=== PATIENT | female | born 1945 | race Caucasian/White ===

== ENCOUNTER → 2020-03-16 | Outpatient (CLI) | payer MEDICARE ==
[~2020-03-16] MED LIST: ALBU2.5V2 IH; ASPI-1197 PO; ASTHMANEX; BISO5TAB19 PO; CLON0.1T PO; CLOP75TA32 PO; HYDR-4060 PO; LIDO20SO MM; LORA1TAB3 PO; LOSA1TAB42 PO; PITA1TAB2 PO; RANO500T2 PO; SUCR1TAB2 PO; TIOT4MIS5 IH
== END | disposition home or self-care (01) ==
LOC: RAH 12:12
PROVIDERS: ATTEND Neurological Surgery
DX: I70.218 Atherosclerosis of native arteries of extremities with intermittent claudication, other extremity (principal); I73.9 Peripheral vascular disease, unspecified; I70.0 Atherosclerosis of aorta
CPT/HCPCS: 93925

== ENCOUNTER → 2020-03-30 | Outpatient (CLI) | payer MEDICARE | END | disposition home or self-care (01) | LOC: SHCH 12:26 | PROVIDERS: ATTEND Internal Medicine Cardiovascular Disease | DX: I65.23 Occlusion and stenosis of bilateral carotid arteries (principal); I51.7 Cardiomegaly; I87.2 Venous insufficiency (chronic) (peripheral); R00.2 Palpitations ==

== ENCOUNTER → 2020-04-07 | Outpatient (CLI) | payer MEDICARE | END | disposition home or self-care (01) | LOC: LAB 11:59 | PROVIDERS: ATTEND Internal Medicine Cardiovascular Disease | DX: I73.89 Other specified peripheral vascular diseases (principal) ==

== ENCOUNTER → 2020-04-09 | Outpatient (CLI) | payer MEDICARE ==
[~2020-04-09] MED LIST changes: +IOHEXOL-350 50ML VIAL IV ONE
== END ==
LOC: OIH 07:46
PROVIDERS: ATTEND Internal Medicine Cardiovascular Disease
DX: I70.0 Atherosclerosis of aorta (principal); J98.11 Atelectasis
CPT/HCPCS: 75635; Q9967

== ENCOUNTER → 2020-07-08 | Outpatient (CLI) | payer MEDICARE ==
[~2020-07-08] MED LIST changes: -IOHEXOL-350 50ML VIAL IV ONE; +REGADENOSON 0.4 MG/5 ML PF SYG IVP SCH
== END | disposition home or self-care (01) ==
LOC: SHCH 07:43
PROVIDERS: ATTEND Internal Medicine Cardiovascular Disease
DX: R06.00 Dyspnea, unspecified (principal); I51.7 Cardiomegaly
CPT/HCPCS: 78452; 93017; 96374; A9500 ×2; J2785

== ENCOUNTER → 2022-05-26 | Outpatient (CLI) | payer MEDICARE ==
[~2022-05-26] MED LIST changes: -ALBU2.5V2 IH; +APIX5TAB PO; -ASPI-1197 PO; -ASTHMANEX; -BISO5TAB19 PO; -LIDO20SO MM; -LOSA1TAB42 PO; +NITR0.4T50 SL; +OLME20TA22 PO; -PITA1TAB2 PO; -REGADENOSON 0.4 MG/5 ML PF SYG IVP SCH; -SUCR1TAB2 PO; +TIOT18CA3 IH; -TIOT4MIS5 IH
[2022-05-26 12:53] LABS: MAGNESIUM 1.8 mg/dL (1.80-2.40); T4 (THYROXINE) 8.7 ug/dL (4.7-13.3); THYROID STIMULATING HORMONE 0.94 uIU/mL (0.36-3.74)
== END | disposition home or self-care (01) ==
LOC: LAB 10:29
PROVIDERS: ATTEND Internal Medicine Cardiovascular Disease
DX: I65.23 Occlusion and stenosis of bilateral carotid arteries (principal); I25.10 Atherosclerotic heart disease of native coronary artery without angina pectoris; I10 Essential (primary) hypertension; E78.5 Hyperlipidemia, unspecified; R60.9 Edema, unspecified
CPT/HCPCS: 36415; 80061; 83735; 83880; 84436; 84443; 84479; 93880

== ENCOUNTER → 2022-09-13 | Outpatient (CLI) | payer MEDICARE ==
[2022-09-13 12:22] LABS: BASOPHILS % (AUTO) 0.9 % (0.0-5.0); EOSINOPHILS % (AUTO) 1.5 % (0.0-8.0); HEMATOCRIT 36.6 % (36-48); LYMPHOCYTES % (AUTO) 41.4 % (21.0-51.0); MEAN CORPUSCULAR HEMOGLOBIN 33.2 pg (27.0-33.0); MEAN CORPUSCULAR HGB CONC 34.4 g/dL (32.0-36.0); MEAN CORPUSCULAR VOLUME 96.3 fL (79-99); NEUTROPHILS % (AUTO) 46.8 % (40.0-77.0); PLATELET COUNT (AUTO) 293 K/uL (130-400); RED CELL DISTRIBUTION WIDTH 12.6 % (11.0-15.5); WHITE BLOOD COUNT (AUTO) 5.5 K/uL (4.8-10.8)
[2022-09-13 12:25] LABS: APPEARANCE,URINE CLEAR (CLEAR); BILIRUBIN,URINE NEGATIVE (NEGATIVE); COLOR,URINE LIGHT-YELLOW (YELLOW); GLUCOSE, URINE (UA) NEGATIVE (NEGATIVE); KETONES,URINE NEGATIVE (NEGATIVE); LEUKOCYTE ESTERASE ,URINE NEGATIVE Leu/uL (NEGATIVE); NITRATE,URINE NEGATIVE (NEGATIVE); OCCULT BLOOD,URINE NEGATIVE (NEGATIVE); PH,URINE 6.5 (5.0-8.0); PROTEIN,URINE NEGATIVE (NEGATIVE); UROBILINOGEN,URINE 0.2 mg/dL (0.2-1.0)
[2022-09-13 12:42] LABS: SQUAMOUS EPITHELIAL CELL,UR RARE /HPF (0-2)
[2022-09-13 12:56] LABS: B-TYPE NATRIURETIC PEPTIDE 16 pg/mL (0-100)
[2022-09-13 13:03] LABS: ALBUMIN 3.7 g/dL (3.5-5.0); CREATININE 0.9 mg/dL (0.5-1.5); MAGNESIUM 1.9 mg/dL (1.80-2.40); POTASSIUM 4.7 mmol/L (3.5-5.1); THYROID STIMULATING HORMONE 1.55 uIU/mL (0.36-3.74); TOTAL PROTEIN, SERUM 7.3 g/dL (6.0-8.3)
[2022-09-13 13:14] LABS: HEMOGLOBIN A1C 7.4 % (4.0-6.0)
== END | disposition home or self-care (01) ==
LOC: LAB 09:31
PROVIDERS: ATTEND Physician Assistant
DX: I10 Essential (primary) hypertension (principal); E78.5 Hyperlipidemia, unspecified; I25.10 Atherosclerotic heart disease of native coronary artery without angina pectoris; Z79.899 Other long term (current) drug therapy; Z95.5 Presence of coronary angioplasty implant and graft
CPT/HCPCS: 36415; 80053; 81001; 83036; 83735; 83880; 84436; 84443; 84479; 85025

== ENCOUNTER → 2022-09-27 | Outpatient (CLI) | payer MEDICARE ==
[~2022-09-27] MED LIST changes: +ALBUTEROL 0.083% 2.5 MG/3 ML INH IH ONE
== END | disposition home or self-care (01) ==
LOC: RESP 12:02
PROVIDERS: ATTEND Internal Medicine Cardiovascular Disease
DX: R06.02 Shortness of breath (principal)
CPT/HCPCS: 94060; 94727; 94729

== ENCOUNTER → 2023-09-28 | Outpatient (CLI) | payer MEDICARE ==
[~2023-09-28] MED LIST changes: -ALBUTEROL 0.083% 2.5 MG/3 ML INH IH ONE; -OLME20TA22 PO; +OLME20TA68 PO
[2023-09-28 11:55] LABS: T4 (THYROXINE) 7.6 ug/dL (4.7-13.3); THYROID STIMULATING HORMONE 1.73 uIU/mL (0.36-3.74)
== END | disposition home or self-care (01) ==
LOC: LAB 09-27 10:26
PROVIDERS: ATTEND Internal Medicine Cardiovascular Disease
DX: I10 Essential (primary) hypertension (principal); R07.9 Chest pain, unspecified; E78.5 Hyperlipidemia, unspecified
CPT/HCPCS: 36415; 80061; 84436; 84443; 84479

== ENCOUNTER 2023-09-30 19:05 | Inpatient (IN) | payer MEDICARE ==
[~2023-09-30] VITALS: Ht 162.6 cm; Wt 83.9 kg
[2023-09-30 19:36] LABS: BASOPHILS # (AUTO) 0.01 K/uL (0.00-0.20); BASOPHILS % (AUTO) 0.2 % (0.0-5.0); HEMATOCRIT 34.9 % (36-48); IMMATURE GRANULOCYTE ABSOLUTE 0.03 K/uL (0-1); LYMPHOCYTES # (AUTO) 0.8 K/uL (1.0-4.8); LYMPHOCYTES % (AUTO) 13.3 % (21.0-51.0); MEAN CORPUSCULAR HEMOGLOBIN 33.4 pg (27.0-33.0); MEAN CORPUSCULAR HGB CONC 34.1 g/dL (32.0-36.0); MONOCYTES # (AUTO) 0.5 K/uL (0.1-1.0); MONOCYTES % (AUTO) 8.5 % (3.0-13.0); NEUTROPHILS # (AUTO) 4.5 K/uL (1.8-7.7); NEUTROPHILS % (AUTO) 77.5 % (40.0-77.0); PLATELET COUNT (AUTO) 183 K/uL (130-400); RED BLOOD CELL COUNT(AUTO) 3.56 MIL/uL (4.00-5.50); RED CELL DISTRIBUTION WIDTH 13.2 % (11.0-15.5); WHITE BLOOD COUNT (AUTO) 5.9 K/uL (4.8-10.8)
[2023-09-30 19:39] LABS: SARS-CoV-2, RNA, NAAT NEGATIVE SARS CoV-2 (NEGATIVE)
[2023-09-30 19:48] LABS: INFLUENZA TYPE A Negative For Type A (NEGATIVE); INFLUENZA TYPE B Negative For Type B (NEGATIVE)
[2023-09-30 19:49] LABS: CREATININE 1.1 mg/dL (0.5-1.5); POTASSIUM 3.3 mmol/L (3.5-5.1)
[2023-09-30] MEDS ORDERED: VANCOMYCIN KIT 1 GM/250 ML IV.KIT IV ONE (20:00)
[2023-09-30] MEDS ORDERED: GUAIFENESIN 600 MG TABLET.ER PO ONE (20:30)
[2023-09-30] MEDS ORDERED: 0.9%NACL 1000ML 1,641 ML IV ONE ×2 (20:30→21:00)
[2023-09-30] MEDS ORDERED: ALBUTEROL 0.083% 2.5 MG/3 ML INH IH ONE ×3 (20:30)
[2023-09-30 20:31] VITALS: PULSE 66; RESP 20
[2023-09-30] MEDS ORDERED: CEFTRIAXONE 1G VIAL IVPB SCH (22:30)
[2023-09-30 22:41] LABS: APPEARANCE,URINE CLOUDY (CLEAR); BILIRUBIN,URINE NEGATIVE (NEGATIVE); COLOR,URINE YELLOW (YELLOW); GLUCOSE, URINE (UA) 30 mg/dL (NEGATIVE); KETONES,URINE 10 mg/dL (NEGATIVE); LEUKOCYTE ESTERASE ,URINE NEGATIVE Leu/uL (NEGATIVE); NITRATE,URINE NEGATIVE (NEGATIVE); OCCULT BLOOD,URINE NEGATIVE (NEGATIVE); PH,URINE 5.5 (5.0-8.0); PROTEIN,URINE 10 mg/dL (NEGATIVE); UROBILINOGEN,URINE 0.2 mg/dL (0.2-1.0)
[2023-09-30 22:47] LABS: ADD UA MICROSCOPIC YES
[2023-09-30] MEDS: ONDANSETRON ODT 4MG TAB SL SCH (22:49)
[2023-09-30] MEDS: 0.9%NACL 1000ML 1,000 ML IV SCH (22:49)
[2023-09-30] MEDS: ACETAMINOPHEN 325 MG TAB PO PRN (22:50)
[2023-09-30 22:56] LABS: BACTERIA,URINE MOD /HPF (None Seen); MUCUS,URINE RARE LPF (None Seen); RBC,URINE 0-1 /HPF (0-1); SQUAMOUS EPITHELIAL CELL,UR MANY /HPF (0-2)
[2023-09-30 23:15] VITALS: PULSE 71; RESP 20
[2023-09-30] MEDS: ALBUTEROL 0.083% 2.5 MG/3 ML INH IH SCH (23:15)
[2023-10-01] MEDS: LACTATED RINGERS 1000ML 1,000 ML IV SCH ×2 (03:10→17:31)
[2023-10-01] MEDS: ONDANSETRON ODT 4MG TAB SL SCH ×4 (03:20→14:30)
[2023-10-01] MEDS: ALBUTEROL 0.083% 2.5 MG/3 ML INH IH SCH ×3 (06:34→19:39)
[2023-10-01 06:35] VITALS: PULSE 73; RESP 18
[2023-10-01 07:07] LABS: BASOPHILS # (AUTO) 0.01 K/uL (0.00-0.20); BASOPHILS % (AUTO) 0.3 % (0.0-5.0); EOSINOPHILS # (AUTO) 0.01 K/uL (0.00-0.70); EOSINOPHILS % (AUTO) 0.3 % (0.0-8.0); HEMATOCRIT 29.9 % (36-48); IMMATURE GRANULOCYTE ABSOLUTE 0.01 K/uL (0-1); LYMPHOCYTES # (AUTO) 1.5 K/uL (1.0-4.8); LYMPHOCYTES % (AUTO) 39.3 % (21.0-51.0); MEAN CORPUSCULAR HEMOGLOBIN 32.9 pg (27.0-33.0); MEAN CORPUSCULAR HGB CONC 32.8 g/dL (32.0-36.0); MEAN CORPUSCULAR VOLUME 100.3 fL (79-99); MONOCYTES # (AUTO) 0.4 K/uL (0.1-1.0); NEUTROPHILS # (AUTO) 1.9 K/uL (1.8-7.7); NEUTROPHILS % (AUTO) 49.8 % (40.0-77.0); PLATELET COUNT (AUTO) 164 K/uL (130-400); RED BLOOD CELL COUNT(AUTO) 2.98 MIL/uL (4.00-5.50); RED CELL DISTRIBUTION WIDTH 13.6 % (11.0-15.5); WHITE BLOOD COUNT (AUTO) 3.9 K/uL (4.8-10.8)
[2023-10-01 08:25] LABS: POTASSIUM 3.3 mmol/L (3.5-5.1)
[2023-10-01] MEDS ORDERED: AZITHROMYCIN 250 MG TABLET PO ONE (09:00)
[2023-10-01 11:05] VITALS: PULSE 79; RESP 18
[2023-10-01] MEDS: POTASSIUM CHLORIDE 10% ELIXIR 20 MEQ/15 ML UDCUP PO PRN ×3 (11:14→15:57)
[2023-10-01] MEDS ORDERED: KETOROLAC 30MG VIAL (30MG/ML) IVP ONE (11:30)
[2023-10-01] MEDS ORDERED: POTASSIUM CHLORIDE 20MEQ/100ML 100 ML IV PRN (11:30)
[2023-10-01] MEDS ORDERED: COMPOUND IV MISC 1 EACH IVSOLN MISC PRN (13:00)
[2023-10-01] MEDS ORDERED: MEROPENEM 1 GM VIAL ONE (13:21)
[2023-10-01] MEDS: 0.9%NACL 1000ML 1,000 ML IV SCH (13:22)
[2023-10-01] MEDS: MEROPENEM 1 GM in 0.9%NACL 100ML 100 ML IV SCH (13:22)
[2023-10-01] MEDS ORDERED: TORS5TAB12 PO (13:44)
[2023-10-01] MEDS ORDERED: BISO5TAB19 PO (13:44)
[2023-10-01] MEDS ORDERED: HYDR-4060 PO (13:44)
[2023-10-01] MEDS ORDERED: OLME20TA68 PO (13:44)
[2023-10-01 14:57] LABS: ABG BASE EXCESS -6.5 mmol/L (-2.0-3.0); ABG HCO3 17.2 mmol/L (21.0-28.0); ABG OXYGEN SATURATION 95.9 % (95.0-99.0); ABG PCO2 29 mmHg (32-45); ABG PH 7.398 (7.35-7.450); CARBON MONOXIDE 0.3; DEVICE COMMENT RR RA; HHb 4.1; PO2, ARTERIAL BG 84.9 mmHg (83.0-108.0)
[2023-10-01] MEDS: BENZONATATE 100 MG CAPSULE PO PRN (17:31)
[2023-10-01 19:39] VITALS: PULSE 78; RESP 18; O2SAT 96
[2023-10-01] MEDS: GUAIFENESIN-DM 200/20 MG 10 ML PO PRN (20:45)
[2023-10-01] MEDS: ACETAMINOPHEN 325 MG TAB PO PRN (20:46)
[2023-10-02] VITALS (11 sets, daily range): BP systolic 148–189; BP diastolic 71–87; PULSE 89–115; RESP 17–22; O2SAT 93–97
[2023-10-02] MEDS: MEROPENEM 1 GM in 0.9%NACL 100ML 100 ML IV SCH ×2 (00:44→14:17)
[2023-10-02] MEDS: 0.9%NACL 1000ML 1,000 ML IV SCH ×2 (01:35→14:30)
[2023-10-02] MEDS: ALBUTEROL 0.083% 2.5 MG/3 ML INH IH SCH ×5 (01:38→23:14)
[2023-10-02] MEDS: BENZONATATE 100 MG CAPSULE PO PRN (01:45)
[2023-10-02] MEDS: ACETAMINOPHEN 325 MG TAB PO PRN ×2 (03:25→10:29)
[2023-10-02] MEDS ORDERED: KETOROLAC 15MG/ML VIAL (15MG/ML) IV ONE (04:30)
[2023-10-02] MEDS: AZITHROMYCIN 250 MG TABLET PO SCH (10:24)
[2023-10-02] MEDS: HYDROMORPHONE 1 MG INJ IVP PRN (13:06)
[2023-10-02] MEDS: HYDROCODONE/ACETAMINOPHEN 10/325 MG TAB PO PRN (17:17)
[2023-10-02] MEDS ORDERED: CLONIDINE HCL 0.1 MG TABLET PO PRN ×3 (17:30→19:30)
[2023-10-02] MEDS: (Olmesartan Medoxomil 20 MG) PO SCH (20:56)
[2023-10-02] MEDS: METOPROLOL TARTRATE 50 MG TAB PO SCH (20:57)
[2023-10-02] MEDS: FAMOTIDINE 20MG TAB PO SCH (20:57)
[2023-10-02] MEDS: LORAZEPAM 1 MG TABLET PO PRN (20:57)
[2023-10-02] MEDS: APIXABAN 5 MG TABLET PO SCH (20:57)
[2023-10-02] MEDS: RANOLAZINE 500 MG TAB.SR.12H PO SCH (20:57)
[2023-10-02] MEDS ORDERED: NON-FORMULARY MEDICATION 1 EACH (Olmesartan Medoxomil 20 MG) PO SCH (21:00)
[2023-10-03] VITALS (13 sets, daily range): BP systolic 143–162; BP diastolic 63–89; PULSE 74–101; RESP 16–22; O2SAT 86–95
[2023-10-03] MEDS: ACETAMINOPHEN 325 MG TAB PO PRN (00:08)
[2023-10-03] MEDS: MEROPENEM 1 GM in 0.9%NACL 100ML 100 ML IV SCH ×2 (01:54→14:58)
[2023-10-03] MEDS: 0.9%NACL 1000ML 1,000 ML IV SCH ×2 (02:49→17:10)
[2023-10-03] MEDS: HYDROMORPHONE 1 MG INJ IVP PRN (05:03)
[2023-10-03] MEDS: ALBUTEROL 0.083% 2.5 MG/3 ML INH IH SCH ×4 (06:54→23:37)
[2023-10-03] MEDS ORDERED: BISOPROLOL FUMARATE 5 MG PO SCH (09:00)
[2023-10-03] MEDS ORDERED: LOSARTAN 100 MG TABLET PO SCH (09:00)
[2023-10-03] MEDS: TORSEMIDE 5 MG PO SCH (09:00)
[2023-10-03] MEDS ORDERED: ATENOLOL 50 MG TABLET PO SCH (09:00)
[2023-10-03] MEDS: AZITHROMYCIN 250 MG TABLET PO SCH (10:02)
[2023-10-03] MEDS: METOPROLOL TARTRATE 50 MG TAB PO SCH ×2 (10:02→21:03)
[2023-10-03] MEDS: RANOLAZINE 500 MG TAB.SR.12H PO SCH ×2 (10:02→21:03)
[2023-10-03] MEDS: CLOPIDOGREL 75MG TAB PO SCH (10:02)
[2023-10-03] MEDS: APIXABAN 5 MG TABLET PO SCH ×2 (10:02→21:05)
[2023-10-03 10:10] LABS: HEMATOCRIT 34.7 % (36-48); MEAN CORPUSCULAR HEMOGLOBIN 32.9 pg (27.0-33.0); RED BLOOD CELL COUNT(AUTO) 3.37 MIL/uL (4.00-5.50); RED CELL DISTRIBUTION WIDTH 13.8 % (11.0-15.5); WHITE BLOOD COUNT (AUTO) 4.9 K/uL (4.8-10.8)
[2023-10-03] MEDS: LORAZEPAM 1 MG TABLET PO PRN ×2 (10:13→23:09)
[2023-10-03 10:34] LABS: ALBUMIN 2.6 g/dL (3.5-5.0); BILIRUBIN,TOTAL 0.6 mg/dL (0.2-1.0); CREATININE 0.6 mg/dL (0.5-1.5); MAGNESIUM 1.6 mg/dL (1.80-2.40); POTASSIUM 3.8 mmol/L (3.5-5.1)
[2023-10-03] MEDS: (Olmesartan Medoxomil 20 MG) PO SCH ×2 (13:34→21:06)
[2023-10-03] MEDS ORDERED: FUROSEMIDE 40MG VIAL IV ONE (14:00)
[2023-10-03] MEDS ORDERED: VANCOMYCIN 750MG VIAL IVPB ONE (14:00)
[2023-10-03] MEDS ORDERED: VANCOMYCIN PROTOCOL PER PHARMACY IV SCH (14:00)
[2023-10-03] MEDS ORDERED: IOHEXOL-350 75 ML VIAL IV ONE (14:07)
[2023-10-03] MEDS ORDERED: VANCOMYCIN 2GM/500 ML BAG 500 ML IV ONE (14:30)
[2023-10-03] MEDS ORDERED: SODIUM CHLORIDE 3% FOR INHALATION 4 ML/AMP VIAL.NEB IH ONE ×2 (15:08→22:02)
[2023-10-03] MEDS: ATORVASTATIN 40 MG TABLET PO SCH (21:01)
[2023-10-03] MEDS: FAMOTIDINE 20MG TAB PO SCH (21:01)
[2023-10-03] MEDS: HYDROCODONE/ACETAMINOPHEN 10/325 MG TAB PO PRN (23:09)
[2023-10-04] VITALS (11 sets, daily range): BP systolic 109–168; BP diastolic 51–93; PULSE 69–116; RESP 18–21; O2SAT 96–97
[2023-10-04] MEDS: MEROPENEM 1 GM in 0.9%NACL 100ML 100 ML IV SCH ×2 (01:09→12:48)
[2023-10-04 03:54] LABS: ABG HCO3 26.3 mmol/L (21.0-28.0); ABG OXYGEN SATURATION 96.3 % (95.0-99.0); ABG PCO2 40 mmHg (32-45); ABG PH 7.435 (7.35-7.450); DEVICE COMMENT NURSE; PO2, ARTERIAL BG 81.6 mmHg (83.0-108.0); VENT MODE, BG 3 L NC (ROOM AIR)
[2023-10-04] MEDS: ALBUTEROL 0.083% 2.5 MG/3 ML INH IH SCH ×4 (06:40→23:04)
[2023-10-04] MEDS: APIXABAN 5 MG TABLET PO SCH ×2 (08:12→21:23)
[2023-10-04] MEDS: RANOLAZINE 500 MG TAB.SR.12H PO SCH ×2 (08:12→21:22)
[2023-10-04] MEDS: AZITHROMYCIN 250 MG TABLET PO SCH (08:12)
[2023-10-04] MEDS: CLOPIDOGREL 75MG TAB PO SCH (08:13)
[2023-10-04] MEDS: METOPROLOL TARTRATE 50 MG TAB PO SCH ×2 (08:13→21:23)
[2023-10-04] MEDS: TORSEMIDE 5 MG PO SCH (09:00)
[2023-10-04] MEDS: (Olmesartan Medoxomil 20 MG) PO SCH ×2 (09:00→21:24)
[2023-10-04] MEDS: HYDROMORPHONE 1 MG INJ IVP PRN (11:42)
[2023-10-04] MEDS: ONDANSETRON ODT 4MG TAB SL PRN (13:49)
[2023-10-04] MEDS: LORAZEPAM 1 MG TABLET PO PRN ×2 (14:02→21:23)
[2023-10-04] MEDS ORDERED: VANCOMYCIN 1G/250ML KIT 250 ML IV SCH (15:00)
[2023-10-04] MEDS ORDERED: MAGNESIUM 2GM PREMIX 50ML 50 ML IV PRN (19:00)
[2023-10-04] MEDS: HYDROCODONE/ACETAMINOPHEN 10/325 MG TAB PO PRN (21:22)
[2023-10-04] MEDS: ATORVASTATIN 40 MG TABLET PO SCH (21:22)
[2023-10-04] MEDS: GUAIFENESIN-DM 200/20 MG 10 ML PO PRN (21:22)
[2023-10-04] MEDS: FAMOTIDINE 20MG TAB PO SCH (21:23)
[2023-10-05] VITALS (7 sets, daily range): BP systolic 123–160; BP diastolic 65–81; PULSE 75–91; RESP 18–21; O2SAT 95–96
[2023-10-05] MEDS: MEROPENEM 1 GM in 0.9%NACL 100ML 100 ML IV SCH ×2 (01:29→15:59)
[2023-10-05 05:20] LABS: HEMATOCRIT 28.6 % (36-48); MEAN CORPUSCULAR HEMOGLOBIN 32.9 pg (27.0-33.0); MEAN CORPUSCULAR HGB CONC 32.9 g/dL (32.0-36.0); RED BLOOD CELL COUNT(AUTO) 2.86 MIL/uL (4.00-5.50); RED CELL DISTRIBUTION WIDTH 13.1 % (11.0-15.5); WHITE BLOOD COUNT (AUTO) 4.4 K/uL (4.8-10.8)
[2023-10-05 05:34] LABS: BILIRUBIN,TOTAL 0.6 mg/dL (0.2-1.0); CREATININE 0.7 mg/dL (0.5-1.5); POTASSIUM 3.2 mmol/L (3.5-5.1)
[2023-10-05] MEDS: KCL 20 MEQ ERTAB PO PRN ×3 (05:52→15:59)
[2023-10-05] MEDS: ALBUTEROL 0.083% 2.5 MG/3 ML INH IH SCH ×2 (06:49→11:09)
[2023-10-05] MEDS: (Olmesartan Medoxomil 20 MG) PO SCH (09:00)
[2023-10-05] MEDS: TORSEMIDE 5 MG PO SCH (09:00)
[2023-10-05] MEDS: RANOLAZINE 500 MG TAB.SR.12H PO SCH (09:07)
[2023-10-05] MEDS: METOPROLOL TARTRATE 50 MG TAB PO SCH (09:07)
[2023-10-05] MEDS: CLOPIDOGREL 75MG TAB PO SCH (09:08)
[2023-10-05] MEDS: APIXABAN 5 MG TABLET PO SCH (09:08)
[2023-10-05] MEDS: ONDANSETRON ODT 4MG TAB SL PRN (09:08)
[2023-10-05] MEDS: AZITHROMYCIN 250 MG TABLET PO SCH (09:08)
[2023-10-05] MEDS: GUAIFENESIN-DM 200/20 MG 10 ML PO PRN (09:09)
[2023-10-05] MEDS: LORAZEPAM 1 MG TABLET PO PRN (09:27)
[2023-10-05] MEDS: HYDROCODONE/ACETAMINOPHEN 10/325 MG TAB PO PRN (09:27)
[2023-10-05] MEDS ORDERED: FUROSEMIDE 40MG VIAL IV ONE (12:30)
[2023-10-06] MEDS ORDERED: TORSEMIDE 20 MG TAB PO SCH (09:00)
== END 2023-10-05 18:05 | disposition home or self-care (01) | DRG 193 ==
LOC: EDH 19:05 → EDHIP 22:22 → UNDOADMIN 22:55 → EDHIP 10-01 00:52 → 3BH 10-01 00:52 → EDHIP 10-01 04:30 → 3BH 10-01 04:30 → 3AH 10-02 02:37
PROVIDERS: ADMIT Internal Medicine Hematology & Oncology; ATTEND Internal Medicine Hematology & Oncology
DX: J15.9 Unspecified bacterial pneumonia (principal); I21.A1 Myocardial infarction type 2; J44.0 Chronic obstructive pulmonary disease with (acute) lower respiratory infection; D68.69 Other thrombophilia; N30.00 Acute cystitis without hematuria; S52.502A Unspecified fracture of the lower end of left radius, initial encounter for closed fracture; J90 Pleural effusion, not elsewhere classified; E11.9 Type 2 diabetes mellitus without complications; E78.00 Pure hypercholesterolemia, unspecified; I25.10 Atherosclerotic heart disease of native coronary artery without angina pectoris; E87.70 Fluid overload, unspecified; Z20.822 Contact with and (suspected) exposure to COVID-19; I08.3 Combined rheumatic disorders of mitral, aortic and tricuspid valves; I27.20 Pulmonary hypertension, unspecified; R13.10 Dysphagia, unspecified; T79.6XXA Traumatic ischemia of muscle, initial encounter; W18.39XA Other fall on same level, initial encounter; Y93.89 Activity, other specified; Y99.8 Other external cause status; I10 Essential (primary) hypertension; Y92.009 Unspecified place in unspecified non-institutional (private) residence as the place of occurrence of the external cause; Z79.01 Long term (current) use of anticoagulants; Z86.711 Personal history of pulmonary embolism; Z86.718 Personal history of other venous thrombosis and embolism; Z86.73 Personal history of transient ischemic attack (TIA), and cerebral infarction without residual deficits; Z87.442 Personal history of urinary calculi; Z88.0 Allergy status to penicillin; Z88.5 Allergy status to narcotic agent; Z88.1 Allergy status to other antibiotic agents; Z88.8 Allergy status to other drugs, medicaments and biological substances; Z90.710 Acquired absence of both cervix and uterus; Z95.5 Presence of coronary angioplasty implant and graft
CPT/HCPCS: 36415; 36600; 71045; 71250; 71275; 73090; 73100; 73221; 80048; 80053; 80061; 81001; 82435; 82550; 82803; 82947; 82948; 83605; 83735; 83880; 84132; 84145; 84295; 84436; 84443; 84479; 84484; 85018; 85025; 85027; 85378; 87040; 87071; 87205; 87635; 87804; 93005; 93306; 93356; 94640; 94664; 94667; 94668; 94760; A4606; C9803; G0378; J0696; J1170; J1885; J1940; J2185; J3370; J3475; J7030; J7120; Q9967

== ENCOUNTER → 2023-10-31 | Outpatient (CLI) | payer MEDICARE ==
[~2023-10-31] MED LIST changes: +BISO5TAB19 PO
== END | disposition home or self-care (01) ==
LOC: SHCH 08:22
PROVIDERS: ATTEND Internal Medicine Cardiovascular Disease
DX: R07.9 Chest pain, unspecified (principal); R09.89 Other specified symptoms and signs involving the circulatory and respiratory systems
CPT/HCPCS: 93880